=== PATIENT | female | born 1975 | race African-American/Black ===

== ENCOUNTER 2016-07-05 15:53 | Emergency (ER) | payer SELFPAY ==
[2016-07-05 15:57] VITALS: BP 149/91; PULSE 85; TEMP 97.8; BMI 29.2
[2016-07-05] MEDS ORDERED: IBUPROFEN 600 MG TABLET (FP) PO ONE ×2 (17:15→17:22)
--- NOTE | 2016-07-05 17:20 | PDOC ---
History of Present Illness - General Chief Complaint: Pain Stated Complaint: PAIN/ EARS, MOUTH, FACE Time Seen by Provider: 07/05/16 16:21 History Source: Patient Exam Limitations: No Limitations - History of Present Illness Initial Comments: 07/05/16 17:17 My Chief Complaint: rt. ear pin, rt. side of face pain, rt. upper gum pain for 2 weeks, rt. upper teeth and rt. lateral neck pain History of present illness: Patient is a 41-year-old female with no significant medical history here today complaining of intermittent right ear pain right side of face pain and right upper gum and teeth pain and right lateral neck pain for 2 weeks. He reports that she was seen upon slipping on 2 weeks ago for similar complaints and then one week ago went back to see a dentist approximately been on however patient has an appointment with her dentist on 09/2016. Patient denies any fever, any sore throat, cough, or any facial swelling. Patient denies any radiation of pain down arms. Patient does not have any facial swelling. She reports that she took oxycodone last night however she did not like how she fell taking it patient did not take anything today for pain. Timing/Duration: intermittent (for 2 weeks ) Severity: moderate (rt. ear, rt. side of face, rt. upper gum area) Associated Symptoms: reports: other (rt. lateral neck pain, rt. side of face pain, rt. upper teeth, gum pain ) Past History - Past Medical History Allergies/Adverse Reactions: Allergies Allergy/AdvReac Type Severity Reaction Status Date / Time No Known Allergies Allergy Verified 07/05/16 15:57 Home Medications: Ambulatory Orders Acetaminophen [Tylenol .Extra-Strength -] 1,000 mg PO Q6H PRN #30 tablet Ibuprofen [Motrin -] 600 mg PO Q6H PRN #18 tablet 07/05/16 Other medical history: NONE - Reproductive History (#): 3 Para: 2 Cervical CA: No Dysfunctional Uterine Bleeding: No Ectopic : No Endometrial CA: No Polycystic Ovaries: No Therapeutic (s) & number: No Tubal Ligation: No Spontaneous : 0 - Psycho/Social/Smoking Cessation Hx Anxiety: No Suicidal Ideation: No Smoking History: Never smoked Have you smoked in the past 12 months: No Hx Alcohol Use: No Drug/Substance Use Hx: No Substance Use Type: None Review of Systems - Review of Systems Able to Perform ROS?: Yes Constitutional: No: Symptoms Reported HEENTM: Yes: Mouth Pain (rt. upper gums, teeth pain ) Respiratory: No: Symptoms reported Cardiac (ROS): No: Symptoms Reported ABD/GI: No: Symptoms Reported : No: Symptoms Reported Musculoskeletal: Yes: Neck Pain (rt. lateral neck ) Integumentary: No: Symptoms Reported Neurological: No: Symptoms reported *Physical Exam - Vital Signs Last Vital Signs Temp Pulse Resp BP Pulse Ox 97.8 F 85 20 149/91 100 07/05/16 15:53 07/05/16 15:53 07/05/16 15:53 07/05/16 15:53 07/05/16 15:53 - Physical Exam General Appearance: Yes: Appropriately Dressed HEENT: positive: EOMI, AIRAM, Normal ENT Inspection, Other (no gum edema or erythema or any noted tooth decay rt or lower teeth) Neck: positive: Tender lateral (right lateral ). negative: Lymphadenopathy (R) , Lymphadenopathy (L) Respiratory/Chest: positive: Lungs Clear, Normal Breath Sounds. 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 negative: Respond to painful stimul Medical Decision Making - Medical Decision Making 07/05/16 17:20 Patient is a 41-year-old female with no significant medical history here today complaining of intermittent right ear pain right side of face pain and right upper gum and teeth pain and right lateral neck pain for 2 weeks. He reports that she was seen upon slipping on 2 weeks ago for similar complaints and then one week ago went back to see a dentist approximately been on however patient has an appointment with her dentist on 07/07/2016. Patient denies any fever, any sore throat, cough, or any facial swelling. Patient denies any radiation of pain down arms. Patient does not have any facial swelling. She reports that she took oxycodone last night however she did not like how she fell taking it patient did not take anything today for pain. She denies any chance of . 07/05/16 17:24 right lateral neck right upper gum/teeth pain PLAN: ibuprofen 600 mg po now than every 6 hrs prn pain Follow up with dentist 07/07/16 07/05/16 17:29 *DC/Admit/Observation/Transfer Diagnosis at time of Disposition: Neck pain on right side, Pain in gums, Tooth sensitivity - Discharge Dispostion Disposition: HOME Condition at time of disposition: Stable - Patient Instructions Additional Instructions: Follow Up with your dentist on 07/07/2016 Eat foods as tolerated and drink fluids as tolerated return to emergency room if symptoms worsen Patient voiced understanding of discharge instructions all questions were answered
== END 2016-07-05 17:44 | disposition home or self-care (01) ==
LOC: JERFT 15:53
DX: K08.89 Other specified disorders of teeth and supporting structures (principal)
CPT/HCPCS: 99281-25